=== PATIENT | female | born 1985 | race American Indian/Alaskan Native ===

== ENCOUNTER 2018-10-23 19:13 | Inpatient (IN) | payer MEDICAID ==
[2018-10-23] MEDS ORDERED: XYLOCAINE 2% INFILTRATI ONE (19:31)
[2018-10-23] MEDS ORDERED: BRETHINE SUB-Q PRN (19:31)
[2018-10-23] MEDS ORDERED: BRETHINE IVP PRN (19:31)
[2018-10-23] MEDS ORDERED: MINERAL OIL PO PRN (19:31)
[2018-10-23] MEDS ORDERED: AMPICILLIN/NS 2 GM/100 ML 2 GM/100 ML BAG IV ONE (20:00)
[2018-10-23] MEDS ORDERED: PITOCin/NS 20 UNIT/1000ML DRIP 20 UNITS/1,000 ML BAG IV SCH (20:00)
[2018-10-23] MEDS ORDERED: LACTATED RINGERS 1,000 ML IV SCH (20:00)
[2018-10-23 20:14] LABS: Hematocrit 34.6 % (30.3-42.9); Mean Corpuscular HGB Conc 32 % (30-34); Platelet Count 204 K/mm3 (140-440); Red Blood Count 5.17 M/mm3 (3.65-5.03); Red Cell Distribution Width 16.4 % (13.2-15.2)
[2018-10-23 20:16] LABS: Mean Corpuscular Volume 67 fl (79-97)
--- NOTE | 2018-10-23 20:26 | History and Physical Report ---
History of Present Illness Date of examination: 10/23/18 Date of admission: 10/23/18 19:58 Chief complaint: contractions History of present illness: 33y/o @ 37+6 weeks presents in active labor with advanced cervical dilation. She denies leakage of fluid. The course is complicated by GDM and a prior tubal ligation. +GBS. +HSV II however the patient denies any recent prodrome. Past History Past Medical History: other (gestational diabetes) Past Surgical History: no surgical history Social history: single - Obstetrical History Expected Date of Delivery: 11/10/18 Actual Gestation: 37 Week(s) 3 Day(s) : 7 Para: 6 Hx # Term Pregnancies: 6 Number of Pregnancies: 0 Spontaneous Abortions: 0 Induced : 0 Number of Living Children: 6 Medications and Allergies Allergies Allergy/AdvReac Type Severity Reaction Status Date / Time aspirin AdvReac Itching Verified 10/23/18 19:31 Home Medications Medication Instructions Recorded Confirmed Last Taken Type HYDROcodone/APAP 5-325 [[place] 1 each PO Q6HR PRN #20 tablet 11/21/17 12/28/17 12/29/17 Rx 5/325] Ibuprofen [Motrin] 800 mg PO Q8HR PRN #30 tablet 11/21/17 12/28/17 12/29/17 Rx Amoxicillin [Trimox] 500 mg PO Q8HR 12/28/17 12/28/17 12/29/17 History Ibuprofen [Motrin] 800 mg PO Q8HR PRN #30 tablet 12/30/17 Unknown Rx oxyCODONE /ACETAMINOPHEN [Percocet 1 tab PO Q6HR PRN #40 tablet 12/30/17 Unknown Rx 5/325] Active Meds: Active Medications Ephedrine Sulfate (Ephedrine Sulfate) 10 mg IV Q2M PRN PRN Reason: Hypotension Oxytocin/Sodium Chloride (Pitocin/Ns 20 Unit/1000ml Drip) 20 units in 1,000 mls @ 125 mls/hr IV DIRECT DAJUAN Lactated Ringer's (Lactated Ringers) 1,000 mls @ 125 mls/hr IV DIRECT DAJUAN Last Admin: 10/23/18 19:45 Dose: 125 mls/hr Documented by: Ampicillin Sodium (Ampicillin/Ns 2 Gm/100 Ml) 2 gm in 100 mls @ 100 mls/hr IV ONCE ONE; Protocol Stop: 10/23/18 20:59 Last Admin: 10/23/18 19:45 Dose: 100 mls/hr Documented by: Ampicillin Sodium (Ampicillin/Ns 1 Gm/50 Ml) 1 gm in 50 mls @ 100 mls/hr IV Q4HR DAJUAN; Protocol Mineral Oil (Mineral Oil) 30 ml PO QHS PRN PRN Reason: Constipation Terbutaline Sulfate ([place]) 0.25 mg SUB-Q ONCE PRN PRN Reason: Hyperstimulation/Hypertonicity Terbutaline Sulfate ([place]) 0.25 mg IVP ONCE PRN PRN Reason: Hyperstimulation/Hypertonicity Review of Systems All systems: negative Genitourinary: contractions - Physical Exam Breasts: Positive: deferred Cardiovascular: Regular rate Lungs: Positive: Clear to auscultation Abdomen: Positive: normal appearance - Obstetrical Cervical Dilatation: 6 Results Result Diagrams: 10/23/18 20:00 Abnormal lab results 10/23/18 Range/Units 20:00 WBC 13.3 H (4.5-11.0) K/mm3 RBC 5.17 H (3.65-5.03) M/mm3 MCV 67 L (79-97) fl MCH 21 L (28-32) pg RDW 16.4 H (13.2-15.2) % All other labs normal. Assessment and Plan - Patient Problems (1) Active labor Current Visit: Yes Status: Acute Plan to address problem: admit to L&D and initiate IV antibiotics (2) Gestational diabetes Current Visit: No Status: Acute Qualifiers: (3) Obesity Current Visit: No Status: Acute
--- NOTE | 2018-10-23 20:46 | Procedure Note ---
OB Delivery Note - Delivery Date of Delivery: 10/23/18 Surgeon: SCOTTY JEFFERSON Estimated blood loss: 200cc - Vaginal Delivery presentation: vertex Delivery position: OA Intrapartum events: other(please specify) (gestational diabetes) Delivery augmentation: rupture of membranes Delivery monitor: none, external FHT, external uterine Delivery placenta: spontaneous Delivery cord: nuchal cord, 3 umbilical vessels Episiotomy: none Delivery laceration: none Anesthesia: none Delivery comments: Patient progressed to C/c/+2 and pushed to deliver a liveborn male with apgars of 8/9 and weight of 6lbs 6oz. After delivery of the head, a nuchal cord x 1 was manually reduced. The shoulders delivered without difficulty. The cord was clamped and cut and placed on the warmer. The placenta delivered spontaneously intact with a 3VC. No lacerations were noted. EBL 200ml. - A at 1 minute: 8 at 5 minutes: 9 Infant Gender: Male (weight 6lbs 6oz)
[2018-10-23] MEDS ORDERED: LANSINOH TP PRN (20:47)
[2018-10-23] MEDS ORDERED: NORCO 5/325 PO PRN (20:47)
[2018-10-23] MEDS ORDERED: TUCKS PAD TP PRN (20:47)
[2018-10-23] MEDS ORDERED: MILK OF MAGNESIA PO PRN (20:47)
[2018-10-23] MEDS ORDERED: TYLENOL PO PRN (20:47)
[2018-10-23] MEDS ORDERED: SODIUM CHLORIDE FLUSH SYRINGE 10 ML IV SCH (21:00)
[2018-10-23] MEDS ORDERED: AMPICILLIN/NS 1 GM/50 ML 1 GM/50 ML BAG IV SCH (23:32)
[2018-10-23] MEDS: IBUPROFEN PO SCH (23:44)
[2018-10-24] MEDS: IBUPROFEN PO SCH ×3 (05:34→23:24)
[2018-10-24 10:04] LABS: Hematocrit 31.5 % (30.3-42.9); Hemoglobin 10.2 gm/dl (10.1-14.3)
--- NOTE | 2018-10-24 12:48 | Progress Note ---
Assessment and Plan - Patient Problems (1) Active labor Current Visit: Yes Status: Acute Plan to address problem: patient doing well discharge home tomorrow (2) Gestational diabetes Current Visit: No Status: Acute Qualifiers: (3) Obesity Current Visit: No Status: Acute Subjective - Subjective Date of service: 10/24/18 Interval history: Patient without complaints. Patient did not receive 2nd dose of antibiotics for GBS coverage. Will discharge home tomorrow Patient reports: appetite normal, voiding normally, pain well controlled : doing well Objective - Vital Signs Latest vital signs: Vital Signs Temp Pulse Resp BP BP Pulse Ox 10/24/18 09:00 98.0 F 68 18 105/63 99 10/24/18 05:52 97.8 F 76 20 112/70 95 10/23/18 22:50 97.9 F 73 20 108/64 98 10/23/18 22:17 80 112/55 10/23/18 21:46 90 112/56 10/23/18 21:32 89 112/62 10/23/18 21:17 85 116/70 10/23/18 21:02 85 108/55 10/23/18 20:46 95 H 120/57 10/23/18 20:43 96 H 202/72 Intake and Output 10/23/18 10/24/18 10/24/18 22:59 06:59 14:59 Intake Total 240 Output Total 600 Balance -360 Intake: Oral 240 Output: Urine 600 Void 600 Other: Total, Intake Amount 240 Total, Output Amount 600 # Voids Void 3 Weight 120.202 kg Estimated Blood Loss 200 - Exam Breasts: Present: deferred Cardiovascular: Present: Regular rate Lungs: Present: Clear to auscultation Abdomen: Present: normal appearance - Labs Labs: Abnormal lab results 10/23/18 10/24/18 Range/Units 20:00 03:01 WBC 13.3 H (4.5-11.0) K/mm3 RBC 5.17 H (3.65-5.03) M/mm3 MCV 67 L (79-97) fl MCH 21 L (28-32) pg RDW 16.4 H (13.2-15.2) % POC Glucose 155 H (70-105)
--- NOTE | 2018-10-24 12:50 | Discharge Summary ---
Providers - Providers Date of Admission: 10/23/18 19:58 Date of discharge: 10/24/18 Attending physician: SCOTTY JEFFERSON Primary care physician: SCOTTY JEFFERSON Hospitalization Reason for admission: active labor Delivery: Discharge diagnosis: IUP at term delivered Hospital course: Patient admitted in active labor. Had . uncomplicated Condition at discharge: Good Disposition: DC-01 TO HOME OR SELFCARE - Discharge Diagnoses (1) Active labor Status: Acute (2) Gestational diabetes Status: Acute Qualifiers: (3) Obesity Status: Acute Plan - Discharge Medications Prescriptions: Ibuprofen [Motrin] 800 mg PO Q8HR PRN #60 tablet PRN Reason: Pain, Mild (1-3) HYDROcodone/APAP 5-325 [[place] 5/325] 1 each PO Q6HR PRN #20 tablet PRN Reason: Pain - Provider Discharge Summary Activity: no sex for 6 weeks, no heavy lifting 4 weeks, no strenuous exercise Diet: routine Instructions: routine Additional instructions: [] Smoking cessation referral if applicable(refer to patient education folder for contact #) [] Refer to [facility] Booklet Call your doctor immediately for: * Fever > 100.5 * Heavy vaginal bleeding ( >1 pad per hour) * Severe persistent headache * Shortness of breath * Reddened, hot, painful area to leg or breast * visit in 4 weeks - Follow up plan
[2018-10-25] MEDS: IBUPROFEN PO SCH ×3 (07:00→18:00)
[2018-10-25 19:59] VITALS: BP 128/69
== END 2018-10-25 21:00 | disposition home or self-care (01) | DRG 775 ==
LOC: TRG 19:13 → LD 19:58 → OB 22:31
PROVIDERS: ADMIT Obstetrics & Gynecology; ATTEND Obstetrics & Gynecology
PROC: 10E0XZZ Delivery of Products of Conception, External Approach (ICD-10-PCS; principal; 2018-10-23)
DX: O99.824 Streptococcus B carrier state complicating childbirth (principal); O24.429 Gestational diabetes mellitus in childbirth, unspecified control; O99.214 Obesity complicating childbirth; O69.81X0 Labor and delivery complicated by cord around neck, without compression, not applicable or unspecified; Z37.0 Single live birth; Z88.6 Allergy status to analgesic agent; Z3A.37 37 weeks gestation of pregnancy
CPT/HCPCS: 36415; 82962; 85014; 85018; 85027; 86592; 86850; 86900; 86901; G0378; J0290; J2590; J7120